=== PATIENT | female | born 1980 | race American Indian/Alaskan Native ===

== ENCOUNTER 2017-12-02 16:23 | Emergency (ER) | payer MEDICAID ==
[2017-12-02 16:57] VITALS: BP 138/82
[2017-12-02 18:37] LABS: Basophils % (Auto) 0.2 % (0.0-1.8); Eosinophils % (Auto) 0.4 % (0.0-4.3); Hematocrit 35.3 % (30.3-42.9); Hemoglobin 11.3 gm/dl (10.1-14.3); Lymphocytes # (Auto) 2.6 K/mm3 (1.2-5.4); Mean Corpuscular HGB Conc 32 % (30-34); Mean Corpuscular Volume 74 fl (79-97); Monocytes # (Auto) 0.5 K/mm3 (0.0-0.8); Monocytes % (Auto) 6.1 % (0.0-7.3); Platelet Count 321 K/mm3 (140-440); Red Blood Count 4.76 M/mm3 (3.65-5.03); Red Cell Distribution Width 15.1 % (13.2-15.2)
[2017-12-02 18:45] LABS: Bilirubin,Urine NEG (Negative); Blood,Urine LG (Negative); Color,Urine Red (Yellow); Mucus,Urine 1+ /HPF; Nitrite,Urine NEG (Negative)
[2017-12-02 18:46] LABS: BUN/Creatinine Ratio 20; Blood Urea Nitrogen 10 mg/dL (7-17); Calcium 8.8 mg/dL (8.4-10.2); Hemolysis Index 9; Mean Corpuscular Hemoglobin 24 pg (28-32)
[2017-12-02 18:49] LABS: Amphetamine Screen,Urine PRESUMPTIVE NEGATIVE; Benzodiazepines Screen,Urine PRESUMPTIVE NEGATIVE; Cannabinoid Screen,Urine PRESUMPTIVE NEGATIVE; Cocaine Screen,Urine PRESUMPTIVE NEGATIVE; Methadone Screen,Urine PRESUMPTIVE NEGATIVE; Opiate Screen,Urine PRESUMPTIVE NEGATIVE
--- NOTE | 2017-12-02 19:03 | Emergency Department Report ---
ED Psych HPI - General Chief Complaint: Psych Stated Complaint: MH EVAL Time Seen by Provider: 12/02/17 17:42 Source: EMS Mode of arrival: Stretcher - History of Present Illness Initial Comments: Patient is a 37-year-old female past history of schizophrenia who is presenting with suicidal and homicidal ideations. Patient's patient states she's been hearing auditory hallucinations with command voices for approximately 1 month. Patient states she is not on any medications at this time. Patient does have some paranoia. His regards to the patient's suicidality there is no plan. Patient denies any acute ingestion of drugs or alcohol. Patient denies fevers chills nausea vomiting diarrhea chest pain shortness of breath this time. - Related Data Home Medications Medication Instructions Recorded Confirmed Last Taken Depakote 1,000 mg PO HS 08/12/16 12/02/17 12/01/17 19:00 FLUoxetine [PROzac] 20 mg PO QDAY 08/12/16 12/02/17 12/02/17 11:00 Olanzapine [ZyPREXA] 40 mg PO QHS 08/12/16 12/02/17 12/01/17 19:00 diphenhydrAMINE [Benadryl CAP] 50 mg PO QHS 08/12/16 12/02/17 12/01/17 19:00 Allergies Allergy/AdvReac Type Severity Reaction Status Date / Time No Known Allergies Allergy Unverified 08/12/16 14:34 ED Review of Systems ROS: Stated complaint: MH EVAL Other details as noted in HPI Comment: All other systems reviewed and negative ED Past Medical Hx - Past Medical History Previous Medical History?: Yes Hx Seizures: Yes Hx Psychiatric Treatment: Yes (schizophrenia) - Surgical History Past Surgical History?: No - Social History Smoking Status: Unknown if ever smoked Substance Use Type: None - Medications Home Medications: Home Medications Medication Instructions Recorded Confirmed Last Taken Type Depakote 1,000 mg PO HS 08/12/16 12/02/17 12/01/17 19:00 History FLUoxetine [PROzac] 20 mg PO QDAY 08/12/16 12/02/17 12/02/17 11:00 History Olanzapine [ZyPREXA] 40 mg PO QHS 08/12/16 12/02/17 12/01/17 19:00 History diphenhydrAMINE [Benadryl CAP] 50 mg PO QHS 08/12/16 12/02/17 12/01/17 19:00 History ED Physical Exam - General Limitations: Altered Mental Status General appearance: alert, in no apparent distress - Head Head exam: Present: atraumatic, normocephalic - Eye Eye exam: Present: normal appearance - ENT ENT exam: Present: mucous membranes moist - Neck Neck exam: Present: normal inspection - Respiratory Respiratory exam: Present: normal lung sounds bilaterally. Absent: respiratory distress, wheezes, rales, rhonchi - Cardiovascular Cardiovascular Exam: Present: regular rate, normal rhythm. Absent: systolic murmur, diastolic murmur, rubs, gallop - GI/Abdominal GI/Abdominal exam: Present: soft, normal bowel sounds - Extremities Exam Extremities exam: Present: normal inspection - Back Exam Back exam: Present: normal inspection - Neurological Exam Neurological exam: Present: alert, oriented X3 - Psychiatric Psychiatric exam: Present: normal affect, normal mood - Skin Skin exam: Present: warm, dry, intact, normal color. Absent: rash ED Course Vital Signs 12/02/17 16:54 Temperature 98.5 F Pulse Rate 110 H Respiratory 18 Rate Blood Pressure 138/82 O2 Sat by Pulse 98 Oximetry ED Medical Decision Making - Lab Data Result diagrams: 12/02/17 18:10 12/02/17 18:10 - Medical Decision Making Mental health evaluation has been ordered and patient placed in a 1013 Critical care attestation.: If time is entered above; I have spent that time in minutes in the direct care of this critically ill patient, excluding procedure time. ED Disposition Clinical Impression: Suicidal ideation Disposition: [id number]/TX-[id number] ANOTHER TYPE [id number] Is pt being admited?: No Does the pt Need Aspirin: No Condition: Stable Referrals: PRIMARY CARE, [Primary Care Provider] - 3-5 Days
[2017-12-02] MEDS ORDERED: BENADRYL PO ONE (22:55)
== END 2017-12-03 00:30 | disposition other institution (70) ==
LOC: ED 16:23
DX: R45.851 Suicidal ideations (principal); F20.9 Schizophrenia, unspecified
CPT/HCPCS: 36415; 80048; 80307; 81001; 85025; 99285; G0480; 80320